=== PATIENT | male | born 2005 | race Caucasian/White ===

== ENCOUNTER 2024-11-23 23:34 | Emergency (ER) | payer BC ==
[~2024-11-23] VITALS: Ht 172.7 cm; Wt 78.0 kg
[2024-11-24] MEDS: HYDROcodone/APAP 5/325 1 TAB TABLET PO ONE (00:01)
--- NOTE | 2024-11-24 01:37 | HMCIMG ---
EXAM: Non-contrast CT examination of the Brain CLINICAL HISTORY: Occipital headache. Nausea. TECHNIQUE: Thin collimated axial CT images of the brain were obtained, with sagittal and coronal reformatted images also submitted. A CT scan was done according to ALARA (As low as reasonably achievable). CONTRAST USED: None. COMPARISON: None provided. FINDINGS: No acute intracranial abnormality is present. No acute cortical infarction, hemorrhage, mass, or mass effect. No hydrocephalus or abnormal extra-axial fluid collections. The posterior fossa is unremarkable. The skull base and calvarium are intact. The mastoid air cells are clear. Small right maxillary polyp. IMPRESSION: No acute intracranial abnormality is present. /[place]
--- NOTE | 2024-11-24 01:47 | ERN ---
ED Note History of Present Illness Stated Complaint: C/O PAIN TO HEAD WITH NAUSEA; Chief Complaint: Headache Time Seen by MD: 23:38 Time Seen by Midlevel: 23:38 Dictation: The patient is a 19-year-old male with a history of asthma who presents to the e mergency department with complaints of occipital scalp pain an hour ago. Patient reports nausea but no vomiting. Denies any fevers. Patient reports that he feels like he has a lump on his scalp. Denies any trauma. Allergies: Coded Allergies: No Known Allergies (Unverified Allergy, Unknown, 11/23/24) Home Meds Active Scripts Meloxicam (Meloxicam) 15 Mg Tablet, 1 TAB PO DAILY for 15 Days, #30 TAB 0 Refills Prov:AMBERLY DEL REAL [employer]CIAL ROOFING ESTIMATOR 11/24/24 Past Medical History Past Medical History: Asthma Surgical History: None RN Note Reviewed/Agreed w/PFSH: Yes Review of System Dictation Constitutional: Negative for fever,chills, and weight loss Eyes: Negative for injury, pain,redness, and discharge ENT: Negative for injury,pain or swelling Cardiovascular: Negative for chest pain, palpitations, and edema Respiratory: Negative for shortness of breath, cough, and wheezing, Abdomen/GI: Negative for abdominal pain, nausea, vomiting, diarrhea, and constipation Back: Negative for injury and pain : Negative for injury, bleeding and discharge MS/Extremity: Negative for injury and deformity Skin: Negative for rash, and discoloration Neuro: Negative for weakness, numbness, tingling, and seizure positive for headache Psych: Negative for suicide ideation, homicidal ideation, and hallucinations Initial Vital Sign VS Vital Signs Date Time Temp Pulse Resp B/P (MAP) Pulse Ox O2 Delivery O2 Flow Rate FiO2 11/23/24 23:36 98.4 74 20 133/71 97 Room Air 11/23/24 23:47 0 21 Physical Exam Dictation Vital Signs reviewed General Appearance: Alert, oriented x 3, no acute distress, well developed, nourished. Head and Face: non-traumatic. Eyes: PERRL, pink conjunctivas, eyelid no trauma, anterior chamber with arcus senilis. Ears: Pinnas intact and no signs of trauma or erythema ear canals clear and no discharge TM no erythema Nose: No discharge, no bleeding. Oropharynx: Mouth normal, tongue pink. pharynx clear,no erythema, tonsils no exudates, no abscesses noted, mucous membrane moist Neck: Supple, non-tender, no thyromegaly, no masses, no JVD, no bruits Breast:Deferred Chest:No tenderness, no crepitus, no paradoxical movement, no retractions Lungs:Clear, well-ventilated, symmetric, no rales, no wheezing, no rhonchi, no stridor, good breath sounds bilaterally Heart: Regular rate, regular rhythm, no murmur, no gallops Vascular: no peripheral edema, Abdomen: Soft, positive bowel sounds, nondistended, no guarding, nontender, no rebound, no masses no hepatomegaly, no splenomegaly, no Beckett's sign, no hernias. Rectal: Deferred Genital: Deferred Neurological: Normal speech, motor function intact, sensory function intact Musculoskeletal: Neck nontender, full range of motion, back nontender, full range of motion, Extremities: nontender, full range of motion Skin: Color pink, dry, no turgor, no rash, no lacerations, no abrasions, no contusions. Tenderness to scalp Lymphatic: Deferred Results (Laboratory/Radiology) Laboratory/Radiology REASON: occipital headache, nausea ORDERING PHYSICIAN: AMBERLY DEL REAL [employer]ERCIAL ROOFING ESTIMATOR PROCEDURE: HEAD WO - CT HEAD/BRAIN W/O CONTRAST EXAM: Non-contrast CT examination of the Brain CLINICAL HISTORY: Occipital headache. Nausea. TECHNIQUE: Thin collimated axial CT images of the brain were obtained, with sagittal and coronal reformatted images also submitted. A CT scan was done according to ALARA (As low as reasonably achievable). CONTRAST USED: None. COMPARISON: None provided. FINDINGS: No acute intracranial abnormality is present. No acute cortical infarction, hemorrhage, mass, or mass effect. No hydrocephalus or abnormal extra-axial fluid collections. The posterior fossa is unremarkable. The skull base and calvarium are intact. The mastoid air cells are clear. Small right maxillary polyp. IMPRESSION: No acute intracranial abnormality is present. /[place] Labs Reviewed?: Yes ED Course ED Course Orders Procedure Category Date Status Time Ct Head/Brain W/O CT 11/23/24 Resulted Contrast 23:52 Hydrocodone/Apap PHA 11/24/24 Complete 5/325 (Shoshoni 5/325mg) 00:00 Ondansetron Odt 4mg PHA 11/24/24 Complete Tab (Zofran 4mg Odt) 00:00 Current Medications Medications (Trade) Dose Ordered Sig/Park Route PRN Reason Start Time Stop Time Status Last Admin Dose Admin Acetaminophen/ Hydrocodone Bitart (NORco 5/325MG) 1 tab ONCE ONCE PO 11/24/24 00:00 11/24/24 00:01 DC 11/24/24 00:01 Ondansetron HCl (zoFRAN 4MG ODT) 4 mg ONCE ONCE SL 11/24/24 00:00 11/24/24 00:01 DC 11/24/24 00:01 Vital Signs Date Time Temp Pulse Resp B/P (MAP) Pulse Ox O2 Delivery O2 Flow Rate FiO2 11/23/24 23:47 99.0 93 20 126/78 97 Room Air* 0 21 11/23/24 23:36 98.4 74 20 133/71 97 Room Air Medical Decision Making MDM The patient is a 19-year-old male with a history of asthma who presents to the emergency department with complaints of occipital scalp pain an hour ago. Carolann ent reports nausea but no vomiting. Denies any fevers. Patient reports that he feels like he has a lump on his scalp. Denies any trauma. CT showed no acute pathology. On physical exam patient has no palpable lesion to the back of the scalp, there is no open wounds. Patient has localized tenderness to the scalp area. Patient otherwise neurologically intact. Improved with pain medication. Patient instructed to follow up with PCP. On physical exam patient is in no acute distress, nontoxic appearance. Vital signs are stable. Differential diagnosis: Intracerebral hemorrhage, cyst, folliculitis Need for hospitalization: Patient does not meet criteria for hospitalization. There are no social concerns with this patient. DX & DISP Disposition: Discharge Departure Impression: Primary Impression: Headache Additional Impression: Scalp pain Condition: Stable Scripts Meloxicam (Meloxicam) 15 Mg Tablet 1 TAB PO DAILY for 15 Days, #30 TAB 0 Refills Prov: AMBERLY DEL REAL [employer] ROOFING ESTIMATOR 11/24/24 Additional Instructions: Please follow up with your primary doctor in 1-2 days. If anything worsens plea se return to ER. Your CT scan was unremarkable. FOLLOW-UP WITH PRIMARY CARE PROVIDER IN 1 TO 2 DAYS. TAKE MEDICATIONS DIREC MIRELLA HERE IN THE EMERGENCY ROOM. OKAY TO CONTINUE HOME MEDICATIONS UNLESS OTHERWISE DISCUSSED DURING YOUR VISIT IN THE EMERGENCY ROOM TODAY. RETURN TO YOUR NEAREST EMERGENCY ROOM IF SYMPTOMS WORSEN OR IF THERE IS NO IMPROVEMENT. CALL 911 IF YOU NEED IMMEDIATE ASSISTANCE. TAKE TYLENOL [id number] NEEDED AND IF NO CONTRAINDICATIONS ARE PRESENT. INCREASE ORAL HYDRATION. A WOUND CULTURE OR URINE CULTURE WAS ORDERED HERE IN THE EMERGENCY ROOM DEPARTMENT PLEASE FOLLOW-UP WITH PRIMARY CARE PROVIDER AND ADVISE THEM TO GET REPEAT PORTS FROM OUR FACILITY. IF YOU HAD ANY RISHABH WRAP/SPLINTS THAT WERE APPLIED HERE, PLEASE DO NOT REMOVE THEM UNTIL YOU SEE YOUR PRIMARY CARE OR SPECIALTY. Referrals: NONE (PCP) Time of Disposition: 01:52 I have reviewed the case, and I agree with, Diagnosis and Plan AMBERLY DEL REAL Nov 24, 2024 01:47
[2024-11-24] MEDS ORDERED: MELO-108 PO (01:52)
[2024-11-24 02:00] VITALS: BP 132/66; PULSE 88; RESP 20; TEMP 98.8; O2SAT 97
== END 2024-11-24 01:59 | disposition home or self-care (01) ==
LOC: EDH 23:34
DX: R51.9 Headache, unspecified (principal); J45.909 Unspecified asthma, uncomplicated; Z79.1 Long term (current) use of non-steroidal anti-inflammatories (NSAID)
CPT/HCPCS: 70450; 99284